=== PATIENT | male | born 1960 | race Caucasian/White ===

== ENCOUNTER → 2020-09-29 12:49 | Outpatient (CLI) | payer OTHER, SELFPAY ==
[2020-09-29 12:11] VITALS: BMI 28.9
--- NOTE | 2020-09-29 13:10 | EKG12_ITS ---
Test Reason : PREOP Blood Pressure : / mmHG Vent. Rate : 065 BPM Atrial Rate : 065 BPM P-R Int : 190 ms QRS Dur : 082 ms QT Int : 378 ms P-R-T Axes : 054 011 033 degrees QTc Int : 393 ms Normal sinus rhythm Normal ECG Confirmed by CORDELL DAY, NICKY ([id number]), digital editor [address] ([id number]) on 09/30/2020 7:49:19 AM Referred By: ANGEL Confirmed By:NICKY LANDA MD
[2020-09-29 13:29] LABS: Absolute Lymphocyte Count 1.01 X10^3/uL (0.83-4.51); Basophil# 0.05 X10^3/uL; Basophil% 0.6 % (0-1); Eosinophil# 0.09 X10^3/uL; Hematocrit 46.4 % (40-54); Hemoglobin 15.5 g/dL (13.0-16.5); Lymphocyte # 1.01 X10^3/ul (4.0); Lymphocyte % 11.4 % (19-41); Mean Corp Hgb Conc 33.4 g/dL (32-36); Mean Corpuscular Hgb 29.7 pg (27.0-32.0); Mean Corpuscular Volume 88.9 fL (80-94); Mean Platelet Vol. 9.3 fl (6.2-12.0); Monocyte# 0.73 X10^3/uL; Monocyte% 8.2 % (0-10); NRBC Flagged by Analyzer 0 % (0-5); Neutrophil # 6.95 X10^3/uL (2.7-7.7); Neutrophil % 78.5 % (47-70); Platelet Count 420 K/mm3 (150-450); RBC Distribution Width CV 12.4 % (11.6-14.6); RBC Distribution Width SD 40.3 fl (35.1-43.9); Red Blood Count 5.22 M/mm3 (4.6-6.2); White Blood Count 8.9 K/mm3 (4.4-11.0)
[2020-09-29 13:57] LABS: ALB/GLOB Ratio 1.2 RATIO (0.9-2.4); AST(SGOT) 15 U/L (15-37); Alanine Aminotransfer ALT/SGPT 38 U/L (16-61); Albumin, Serum 4.1 g/dL (3.2-5.0); Alkaline Phosphatase 59 U/L (45-117); Anion Gap 6 (5-15); BUN 15 mg/dL (7-18); BUN/Creat Ratio 12.7 RATIO (10-20); Calcium,Total 9.1 mg/dL (8.5-10.1); Chloride 107 mmol/L (98-107); Creatinine, Serum 1.18 mg/dL (0.70-1.30); EST Glomerular Filtration Rate 67 mL/min (>60); Est Glom Filt Rate - Afr Amer 81 mL/min (>60); Globulin 3.3 g/dL (2.2-4.2); Glucose 159 mg/dL (74-106); Magnesium 2.3 mg/dL (1.6-2.6); Potassium 3.9 mmol/L (3.5-5.1); Protein, Total 7.4 g/dL (6.4-8.2); Sodium Level 138 mmol/L (136-145)
== END ==
PROVIDERS: PCP Family Medicine; Visit Provider Surgery
DX: Z01.818 Encounter for other preprocedural examination (principal); I10 Essential (primary) hypertension; R19.4 Change in bowel habit
CPT/HCPCS: 36415; 80053; 83735; 85025; 93005

== ENCOUNTER → 2023-09-04 | Outpatient (CLI) | payer OTHER, SELFPAY ==
[2023-09-04 15:16] LABS: International Normalized Ratio 3.1; Prothrombin Time (Protime)PT. 32.7 SECONDS (11.7-14.9)
[2023-09-04 15:27] LABS: Anion Gap 7 (5-15); BUN 56 mg/dL (7-18); BUN/Creat Ratio 20.7 RATIO (10-20); Calcium,Total 8.8 mg/dL (8.5-10.1); Chloride 101 mmol/L (98-107); EST Glomerular Filtration Rate 26 mL/min (>60); Est Glom Filt Rate - Afr Amer 31 mL/min (>60); Glucose 223 mg/dL (74-106); Potassium 4.1 mmol/L (3.5-5.1); Sodium Level 135 mmol/L (136-145)
== END | disposition home or self-care (01) ==
PROVIDERS: PCP Nurse Practitioner Family
DX: Z79.01 Long term (current) use of anticoagulants (principal); Z79.899 Other long term (current) drug therapy
CPT/HCPCS: 36415; 80048; 85610

== ENCOUNTER → 2023-12-26 | Outpatient (CLI) | payer OTHER, SELFPAY ==
[2023-12-26 16:19] LABS: Absolute Lymphocyte Count 1.15 X10^3/uL (0.83-4.51); Basophil# 0.05 X10^3/uL; Basophil% 0.6 % (0-1); Eosinophil# 0.17 X10^3/uL; Eosinophils% 2.1 % (0-5); Hematocrit 44.5 % (40-54); Hemoglobin 14.2 g/dL (13.0-16.5); Lymphocyte # 1.15 X10^3/ul (0.83-4.51); Lymphocyte % 14.1 % (19-41); Mean Corp Hgb Conc 31.9 g/dL (32-36); Mean Corpuscular Hgb 28.7 pg (27.0-32.0); Mean Corpuscular Volume 89.9 fL (80-94); Mean Platelet Vol. 10.6 fl (6.2-12.0); Monocyte# 0.83 X10^3/uL; Monocyte% 10.2 % (0-10); NRBC Flagged by Analyzer 0 % (0-5); Neutrophil # 5.95 X10^3/uL (2.7-7.7); Neutrophil % 72.8 % (47-70); Platelet Count 467 K/mm3 (150-450); RBC Distribution Width CV 13.3 % (11.6-14.6); RBC Distribution Width SD 43.6 fl (35.1-43.9); Red Blood Count 4.95 M/mm3 (4.6-6.2); White Blood Count 8.2 K/mm3 (4.4-11.0)
[2023-12-26 16:24] LABS: Erythrocyte Sedimentation Rate 21 mm/hr (0-20)
[2023-12-26 17:21] LABS: Vitamin B12 387 pg/mL (211-911); Vitamin D,25 Hydroxy 26.8 ng/mL
[2023-12-26 17:29] LABS: ALB/GLOB Ratio 1.1 RATIO (0.9-2.4); AST(SGOT) 11 U/L (15-37); Alanine Aminotransfer ALT/SGPT 18 U/L (16-61); Albumin, Serum 3.8 g/dL (3.2-5.0); Alkaline Phosphatase 68 U/L (45-117); Anion Gap 8 (5-15); BUN 31 mg/dL (7-18); BUN/Creat Ratio 19.6 RATIO (10-20); Calcium,Total 9.7 mg/dL (8.5-10.1); Chloride 104 mmol/L (98-107); Cholesterol 176 mg/dL (200); Creatinine, Serum 1.58 mg/dL (0.70-1.30); EST Glomerular Filtration Rate 47 mL/min (>60); Est Glom Filt Rate - Afr Amer 57 mL/min (>60); Free T3 2.7 pg/mL (2.18-3.98); Globulin 3.4 g/dL (2.2-4.2); Glucose 101 mg/dL (74-106); High Density Lipoprotein 48 mg/dL; Potassium 4.7 mmol/L (3.5-5.1); Protein, Total 7.2 g/dL (6.4-8.2); Sodium Level 138 mmol/L (136-145); T4 Free Direct 1.08 ng/dL (0.76-1.46); Thyroid Stim Hormone (TSH) 6.98 uIU/mL (0.358-3.74); Triglycerides 97 mg/dL; Very Low Density Lipoprotein 19 mg/dL (5-40)
[2023-12-26 17:32] LABS: Hemoglobin A1c 5.9 % (3.8-5.6)
[2023-12-31 00:07] LABS: T3 Reverse 39.3 ng/dL (9.2-24.1); Thyroid Peroxidase AB 13 IU/mL (0-34)
== END | disposition home or self-care (01) ==
LOC: LABSPEC 15:47
PROVIDERS: PCP Nurse Practitioner Family
DX: E11.649 Type 2 diabetes mellitus with hypoglycemia without coma (principal); I50.9 Heart failure, unspecified; E11.22 Type 2 diabetes mellitus with diabetic chronic kidney disease; N18.1 Chronic kidney disease, stage 1
CPT/HCPCS: 80053; 80061; 82306; 82607; 82746; 83036; 84439; 84443; 84481; 84482; 85025; 85652; 86140; 86376

== ENCOUNTER → 2024-04-17 | Outpatient (CLI) | payer OTHER, SELFPAY ==
--- NOTE | 2024-04-17 13:38 | ECHOLC_ITS ---
Reason For Study: ISCHEMIC CMP, LV THOMBUS HX. Procedure This was a limited 2D transthoracic echocardiogram. Contrast injection was performed. Left Ventricle Mildly dilated left ventricle. The estimated ejection fraction is 20 %. There is evidence of diastolic dysfunction. There is severe global hypokinesis of the left ventricle. Right Ventricle Mildly dilated right ventricle. Mild global right ventricular systolic dysfunction. Atria The left atrium is mildly enlarged. Normal right atrium. No doppler evidence for ASD. Mitral Valve There is no mitral valve stenosis. Trivial mitral valve insufficiency. Tricuspid Valve There is no tricuspid stenosis. Trivial tricuspid valve insufficiency. Unable to estimate RV systolic pressure due to insufficient tricuspid regurgitant envelope. Aortic Valve Trisinus/trileaflet aortic valve. Mild diffuse aortic valve thickening. There is no aortic stenosis. Trivial aortic valve insufficiency. Pulmonic Valve There is no pulmonic valvular stenosis. Great Vessels Normal aortic root. Pericardium/Pleural No pericardial effusion. MMode/2D Measurements & Calculations LVIDd: 5.7 cm IVSd: 0.78 cm Ao root diam: 3.6 cm LVIDs: 4.5 cm LVPWd: 0.90 cm RVDd: 4.0 cm FS: 20.0 % LAV(MOD-bp): 78.5 ml LVAd ap4: 44.3 cm2 LVAd ap2: 29.6 cm2 LAV(MOD-bp) Indexed: 43.4 ml/m2 LVLd ap4: 9.5 cm LVLd ap2: 7.8 cm LAV(MOD-sp2): 72.5 ml EDV(MOD-sp4): 169.1 ml EDV(MOD-sp2): 91.5 ml LAV(MOD-sp4): 72.6 ml EDV(sp4-el): 174.6 ml EDV(sp2-el): 95.6 ml LVAs ap4: 38.4 cm2 LVAs ap2: 25.1 cm2 LVLs ap4: 8.9 cm LVLs ap2: 7.2 cm ESV(MOD-sp4): 135.2 ml ESV(MOD-sp2): 72.2 ml ESV(sp4-el): 140.4 ml ESV(sp2-el): 74.1 ml EF(MOD-sp4): 20.0 % EF(MOD-sp2): 21.1 % EF(sp4-el): 19.6 % SV(MOD-sp4): 33.9 ml SV(MOD-sp2): 19.3 ml SV(sp4-el): 34.2 ml LA dimension(2D): 4.8 cm LA A4 area: 21.3 cm2 RA A4 area: 16.7 cm2 Doppler Measurements & Calculations TR max ruben: 344.4 cm/sec TR max P.4 mmHg ECHO/Echo Limited w/Contrast Interpretation Summary The estimated ejection fraction is 20 %. There is severe global hypokinesis of the left ventricle. There is evidence of diastolic dysfunction. Mildly dilated right ventricle. Mild global right ventricular systolic dysfunction. The left atrium is mildly enlarged. Trivial mitral valve insufficiency. Trivial aortic valve insufficiency. Ordering Physician: Joe Gonzalez Referring Physician: Isaura Bhatt Performed By: Hugh, Dorita, RDCS, RVT
== END | disposition home or self-care (01) ==
LOC: CVS 13:38
PROVIDERS: PCP Nurse Practitioner Family; Referring Provider Internal Medicine Cardiovascular Disease; Visit Provider Internal Medicine Cardiovascular Disease
DX: I25.5 Ischemic cardiomyopathy (principal); I51.3 Intracardiac thrombosis, not elsewhere classified
CPT/HCPCS: 93308; Q9957; A4216; C8924

== ENCOUNTER → 2024-10-01 | Outpatient (CLI) | payer OTHER, SELFPAY ==
[2024-10-01 08:43] LABS: Absolute Lymphocyte Count 1.37 X10^3/uL (0.83-4.51); Absolute Neutrophil Count 3.4 X10^3/uL (2.0-7.7); Basophil# 0.03 X10^3/uL; Basophil% 0.5 % (0-1); Eosinophil# 0.27 X10^3/uL; Eosinophils% 4.7 % (0-5); Hematocrit 41.8 % (40-54); Hemoglobin 13.5 g/dL (13.0-16.5); Lymphocyte # 1.37 X10^3/ul (0.83-4.51); Lymphocyte % 23.8 % (19-41); Mean Corp Hgb Conc 32.3 g/dL (32-36); Mean Corpuscular Hgb 28.5 pg (27.0-32.0); Mean Corpuscular Volume 88.2 fL (80-94); Mean Platelet Vol. 9.6 fl (6.2-12.0); Monocyte# 0.67 X10^3/uL; Monocyte% 11.6 % (0-10); NRBC Flagged by Analyzer 0 % (0-5); Neutrophil # 3.41 X10^3/uL (2.7-7.7); Neutrophil % 59.2 % (47-70); Platelet Count 384 K/mm3 (150-450); RBC Distribution Width CV 16.9 % (11.6-14.6); RBC Distribution Width SD 54.3 fl (35.1-43.9); Red Blood Count 4.74 M/mm3 (4.6-6.2); White Blood Count 5.8 K/mm3 (4.4-11.0)
[2024-10-01 10:59] LABS: ALB/GLOB Ratio 1.3 RATIO (0.9-2.4); AST(SGOT) 25 U/L (<=37); Alanine Aminotransfer ALT/SGPT 21 U/L (<=46); Alkaline Phosphatase 110 U/L (40-129); Anion Gap 12 (5-15); BUN 30 mg/dL (4-19); Calcium,Total 9.7 mg/dL (7.6-11.0); Carbon Dioxide 24.6 mmol/L (21.0-32.0); Chloride 103 mmol/L (98-108); Cholesterol 136 mg/dL (<=200); EST Glomerular Filtration Rate 75 (>60); Globulin 3.1 g/dL (2.2-4.2); Glucose 104 mg/dL (70-99); High Density Lipoprotein 61 mg/dL; Low Density Lipoprotein Calc. 64 mg/dL; Potassium 4.3 mmol/L (3.3-5.1); Pro- Brain NATRIURETIC PEPTIDE 3595 pg/mL (<=900); Protein, Total 7.1 g/dL (5.9-8.4); Sodium Level 139 mmol/L (133-145); Total Bilirubin 0.59 mg/dL (0.00-1.30); Triglycerides 56 mg/dL; Very Low Density Lipoprotein 11 mg/dL (5-40); cholesterol:hdl ratio screen 2.24
== END | disposition home or self-care (01) ==
PROVIDERS: PCP Nurse Practitioner Family; Referring Provider Internal Medicine Cardiovascular Disease; Visit Provider Internal Medicine Cardiovascular Disease
DX: N18.30 Chronic kidney disease, stage 3 unspecified (principal); E11.22 Type 2 diabetes mellitus with diabetic chronic kidney disease; I25.5 Ischemic cardiomyopathy
CPT/HCPCS: 36415; 80053; 80061; 83880; 85025

== ENCOUNTER → 2025-04-22 | Outpatient (CLI) | payer OTHER, SELFPAY ==
--- NOTE | 2025-04-22 12:48 | ECHOCS_ITS ---
Reason For Study Reason For Study: EF EVAL Procedure This was a 2D Doppler, Color Flow transthoracic echocardiogram. The study was technically difficult. Contrast injection was performed. Exam performed in department. Left Ventricle Mildly dilated left ventricular cavity. Severely thinned anteroseptal wall. Severe generalized LV hypokinesis. Estimated LVEF 15-20%. At least stage I diastolic dysfunction. Right Ventricle Normal right ventricle. Atria The left atrium is mildly enlarged. Normal right atrium. Mitral Valve Mild (1+) mitral valve insufficiency. Tricuspid Valve Mild (1+) tricuspid valve insufficiency. Right ventricular systolic pressure estimated to be 70 mmHg. Aortic Valve Trisinus/trileaflet aortic valve. Mild (1+) aortic valve insufficiency. Pulmonic Valve Mild (1+) pulmonic valve insufficiency. Great Vessels Normal sized aortic root. Pericardium/Pleural No pericardial effusion. Medication 22 gauge I.V. with prn adaptor inserted into right arm. Diluted definity 1.5ml given slow IV push to enhance endocardial definition. MMode/2D Measurements & Calculations LVIDd: 5.6 cm IVSd: 0.61 cm LVOT diam: 2.0 cm LVIDs: 5.3 cm LVPWd: 1.0 cm RVDd: 3.9 cm FS: 5.7 % LVOT area: 3.2 cm2 Ao root diam: 3.6 cm LAV(MOD-bp): 71.9 ml LVAd ap4: 43.1 cm2 LAV(MOD-bp) Indexed: 37.8 ml/m2 LVLd ap4: 8.9 cm LAV(MOD-sp2): 69.8 ml EDV(MOD-sp4): 167.3 ml LAV(MOD-sp4): 60.0 ml EDV(sp4-el): 176.3 ml LVAs ap4: 38.0 cm2 LVLs ap4: 8.2 cm ESV(MOD-sp4): 144.9 ml ESV(sp4-el): 149.7 ml EF(MOD-sp4): 13.4 % EF(sp4-el): 15.1 % SV(MOD-sp4): 22.4 ml SV(sp4-el): 26.6 ml LA A4 area: 21.1 cm2 SI(MOD-sp4): 11.8 ml/m2 LA dimension(2D): 3.8 cm RA A4 area: 15.3 cm2 Doppler Measurements & Calculations MV V2 max: 92.0 cm/sec Ao V2 max: 88.8 cm/sec AI max ruben: 344.9 cm/sec MV max P.4 mmHg Ao max P.2 mmHg AI max P.6 mmHg MV V2 mean: 58.7 cm/sec Ao V2 mean: 67.7 cm/sec AI dec slope: 166.4 cm/sec2 MV mean P.6 mmHg Ao mean P.1 mmHg AI P1/2t: 607.2 msec MV V2 VTI: 21.7 cm Ao V2 VTI: 18.8 cm MVA(VTI): 2.1 cm2 AV (velocity ratio): 0.75 JOSE(I,D): 2.4 cm2 JOSE(V,D): 2.9 cm2 LV V1 max: 79.9 cm/sec SV(LVOT): 45.1 ml PA V2 max: 61.9 cm/sec LV V1 max P.6 mmHg PA V2 mean: 43.2 cm/sec LV V1 mean P.6 mmHg LV V1 mean: 60.1 cm/sec LV V1 VTI: 14.1 cm TR max ruben: 403.1 cm/sec TR max P.0 mmHg ECHO/Echo Complete W/ Contrast Interpretation Summary Mildly dilated left ventricular cavity. Severely thinned anteroseptal wall. Severe generalized LV hypokinesis. Estimated LVEF 15-20%. At least stage I [place] tolic dysfunction. The left atrium is mildly enlarged. Mild (1+) mitral valve insufficiency. Mild (1+) tricuspid valve insufficiency. Right ventricular systolic pressure estimated to be 70 mmHg. Mild (1+) aortic valve insufficiency. Mild (1+) pulmonic valve insufficiency. Ordering Physician: Ponce Matt Referring Physician: Ponce Matt Performed By: Gabby Kolb RCS
== END | disposition home or self-care (01) ==
LOC: CVS 12:48
PROVIDERS: PCP Nurse Practitioner Family; Referring Provider Nurse Practitioner Family; Visit Provider Nurse Practitioner Family
DX: I25.5 Ischemic cardiomyopathy (principal)
CPT/HCPCS: 93306; Q9957; A4216; C8929